=== PATIENT | male | born 1945 | race Hispanic/Latino ===

== ENCOUNTER 2017-06-12 17:02 | Inpatient (IN) | payer MEDICARE ==
[2017-06-12 17:56] LABS: BASO % 0.5 % (0.0-2.0); EOS # 0.2 K/uL (0.0-0.7); EOS % 2.2 % (0.0-4.0); LYMPH # 3.9 K/uL (1.0-4.3); LYMPH % 41.1 % (20.0-40.0); MEAN CELL VOLUME 92.1 fL (80.0-94.0); MEAN CORPUSCULAR HEMOGLOBIN 31.5 pg (27.0-31.0); MEAN CORPUSCULAR HGB CONC 34.2 g/dL (33.0-37.0); MEAN PLATELET VOLUME 9.6 fL (7.2-11.7); MONO # 0.7 K/uL (0.0-0.8); MONO % 7.5 % (0.0-10.0); NEUT # 4.7 K/uL (1.8-7.0); NEUT % 48.7 % (50.0-75.0); NRBC % 0.1 % (0.0-2.0); RBC 4.12 Mil/uL (4.40-5.90); RED CELL DISTRIBUTION WIDTH 13.4 % (11.5-14.5); WHITE BLOOD COUNT 9.6 K/uL (4.8-10.8)
--- NOTE | 2017-06-12 18:02 | RAD ---
HISTORY: Syncope COMPARISON: None available. TECHNIQUE: Chest, one view. FINDINGS: Examination limited by habitus and patient obliquity. LUNGS: No focal consolidation. Please note that chest x-ray has limited sensitivity for the detection of pulmonary masses. PLEURA: No significant pleural effusion identified. No definite pneumothorax . CARDIOVASCULAR: Mild cardiomegaly. OSSEOUS STRUCTURES: Degenerative changes of the spine and shoulders. VISUALIZED UPPER ABDOMEN: Lucency beneath the left hemidiaphragm consistent with gaseous distention of stomach. OTHER FINDINGS: None. IMPRESSION: Mild cardiomegaly.
[2017-06-12 18:07] LABS: PROTHROMBIN TIME 11.6 SECONDS (9.7-12.2)
[2017-06-12 18:10] LABS: ALB/GLOB RATIO 1.5 (1.0-2.1); ALBUMIN 4.1 g/dL (3.5-5.0); ALT/SGPT 263 U/L (21-72); AST/SGOT 200 U/L (17-59); BLOOD UREA NITROGEN 25 mg/dL (9-20); CALCIUM 8.4 mg/dl (8.6-10.4); GFR AFRICAN-AMERICAN > 60; GFR NON-AFRICAN AMERICAN 50; MAGNESIUM 1.6 mg/dL (1.6-2.3)
[2017-06-12 18:27] LABS: B-TYPE NATRIURETIC PEPTIDE 891 pg/mL (0-900)
[2017-06-12] MEDS ORDERED: Lactated Ringer's 1,000 ML IVB STA (18:29)
[2017-06-12] MEDS ORDERED: Lactated Ringer's 1,000 ML ONE (18:42)
[2017-06-12] MEDS ORDERED: Heparin25000 units/250ml 1/2NS 25,000 UNITS/250 ML BAG IV ONE ×2 (19:06→19:15)
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
[2017-06-12] MEDS ORDERED: Iodixanol 320 MG/ML 100 ML BOTTLE IV ONE (20:45)
--- NOTE | 2017-06-12 22:37 | CT ---
EXAM: CT Angiography Chest With Intravenous Contrast EXAM DATE/TIME: 06/12/2017 7:53 PM CLINICAL HISTORY: 71 years old, male; Signs and symptoms and condition or disease; Lung condition and disease; Pulmonary embolism; Dyspnea; Additional info: Syncope. Chest pain. R/O pe TECHNIQUE: Axial computed tomographic angiography images of the chest with intravenous contrast using pulmonary embolism protocol. All CT scans at this facility use one or more dose reduction techniques, viz.: automated exposure control; ma/kV adjustment per patient size (including targeted exams where dose is matched to indication; i.e. head); or iterative reconstruction technique. MIP reconstructed images were created and reviewed. Coronal and sagittal reformatted images were created and reviewed. CONTRAST: 100 mL of visipaque 320 administered intravenously. COMPARISON: There are no prior studies for comparison. FINDINGS: Artifacts: Motion artifact degrades image quality. Heart, Aorta and Pulmonary arteries: The heart is mildly enlargedThere is trace fluid in pericardial recesses. There are coronary artery calcifications.There is no aneurysm or dissection. There are scattered calcifications in the aortic wall. There is perfusion of the 3 arch vessels.There are no pulmonary emboli. Lungs and pleural spaces: Trachea and main bronchi are patent. There is no pneumothorax. There is dependent atelectasis greatest at the lung bases. There is minimal atelectasis/scarring in the middle lobe and lingula. There is no lobar or segmental consolidation. There are no effusions. Mediastinum: There is fatty infiltration of the mediastinum. The esophagus is partially distended with air. There are shotty mediastinal nodes. There are no pathologically enlarged mediastinal or hilar nodes. Thyroid: Thyroid is not optimally demonstrated. Bones/joints: There is a minimally displaced fracture of the anterior left fifth rib. There is minimal overlying bruising. There are degenerative changes in the osseus structures. Soft tissues: unremarkable Lymph nodes: See above. Upper abdomen: There are no acute abnormalities in the visualized portion of the abdomen.There is fatty infiltration of the liver. IMPRESSION: Mild cardiomegaly, no aneurysm, dissection or pulmonary embolus; fracture inferior left fifth rib Additional findings as described above. An acute nondisplaced rib fracture may be radiographically occult
--- NOTE | 2017-06-12 22:45 | CP.PCM.CON ---
History of Present Illness - History of Present Illness History of Present Illness: 71yo M. PMHx Anxiety, Asthma, Depression, Mitral Valve Prolapse. patient had a syncopal episode today. Patient had CPR performed by bystander, possibly unnecessarily. Arrived via EMS, alert and oriented. Patient has palpable chest pain that spans his entire chest that is reproducible with palpation, also possible from chest compressions. Patient had a nuclear stress test this year, that didn't show any abnormalities. He has been told he has an arrhythmia , for which he has had a holter monitor several times, with no positive results. 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 Review of Systems - Review of Systems All systems: reviewed and no additional remarkable complaints except - Cardiovascular Cardiovascular: Chest Pain (reproducible, feels muscular in nature) Past Patient History - Past Social History Smoking Status: Never Smoked - CARDIAC Hx Mitral Valve Prolapse: Yes - PULMONARY Hx Asthma: Yes - PSYCHIATRIC Hx Anxiety: Yes Hx Depression: Yes Hx Substance Use: No - SURGICAL HISTORY Hx Tonsillectomy: Yes - ANESTHESIA Hx Anesthesia: Yes Hx Anesthesia Reactions: No Meds Allergies/Adverse Reactions: Allergies Allergy/AdvReac Type Severity Reaction Status Date / Time No Known Allergies Allergy Verified 06/12/17 17:09 - Medications Medications: Current Medications Heparin Sodium/Sodium Chloride (Heparin 42633 Units/250ml 1/2 Normal Saline) 25 ,000 units in 250 mls @ 12.519 mls/hr IV .[id number] ONE; 12 U/KG/HR PRN Reason: Protocol Stop: 06/13/17 15:13 Last Admin: 06/12/17 19:53 Dose: 12.519 mls/hr Physical Exam - Head Exam Head Exam: ATRAUMATIC, NORMAL INSPECTION, NORMOCEPHALIC - Eye Exam Eye Exam: EOMI, Normal appearance, PERRL - ENT Exam ENT Exam: Mucous Membranes Moist, Normal Exam - Respiratory Exam Respiratory Exam: Clear to Auscultation Bilateral, NORMAL BREATHING PATTERN - Cardiovascular Exam Cardiovascular Exam: REGULAR RHYTHM - GI/Abdominal Exam GI & Abdominal Exam: Normal Bowel Sounds, Soft. absent: Tenderness - Neurological Exam Neurological exam: Alert, CN II-XII Intact, Oriented x3, Reflexes Normal - Psychiatric Exam Psychiatric exam: Normal Affect, Normal Mood Results - Vital Signs Recent Vital Signs: Last Vital Signs Temp Pulse 79 06/12/17 21:59 Resp 14 06/12/17 21:59 BP 131/51 L 06/12/17 21:59 Pulse Ox 97 06/12/17 21:59 - Labs Result Diagrams: 06/12/17 17:51 06/12/17 17:51 Labs: Laboratory Results - last 24 hr 06/12/17 06/12/17 06/12/17 17:13 17:51 17:51 WBC 9.6 RBC 4.12 L Hgb 13.0 Hct 38.0 MCV 92.1 MCH 31.5 H MCHC 34.2 RDW 13.4 Plt Count 235 MPV 9.6 Neut % (Auto) 48.7 L Lymph % (Auto) 41.1 H [place] % (Auto) 7.5 Eos % (Auto) 2.2 Baso % (Auto) 0.5 Neut # 4.7 Lymph # 3.9 [place] # 0.7 Eos # 0.2 Baso # 0.0 PT 11.6 INR 1.0 APTT 26 Sodium Potassium Chloride Carbon Dioxide Anion Gap BUN Creatinine Est GFR ( Amer) Est GFR (Non-Af Amer) POC Glucose (mg/dL) 116 H Random Glucose Calcium Magnesium Total Bilirubin AST ALT Alkaline Phosphatase Total Creatine Kinase CK-MB (Mass) Troponin I NT-Pro-B Natriuret Pep Total Protein Albumin Globulin Albumin/Globulin Ratio 06/12/17 06/12/17 17:51 21:10 WBC RBC Hgb Hct MCV MCH MCHC RDW Plt Count MPV Neut % (Auto) Lymph % (Auto) [place] % (Auto) Eos % (Auto) Baso % (Auto) Neut # Lymph # [place] # Eos # Baso # PT INR APTT Sodium 136 Potassium 4.0 Chloride 102 Carbon Dioxide 18 L Anion Gap 20 BUN 25 H Creatinine 1.4 Est GFR ( Amer) > 60 Est GFR (Non-Af Amer) 50 POC Glucose (mg/dL) Random Glucose 127 H Calcium 8.4 L Magnesium 1.6 Total Bilirubin 0.4 AST 200 H ALT 263 H Alkaline Phosphatase 60 Total Creatine Kinase 134 CK-MB (Mass) 2.40 Troponin I 0.1530 H* 0.3580 H* NT-Pro-B Natriuret Pep 891 Total Protein 7.0 Albumin 4.1 Globulin 2.8 Albumin/Globulin Ratio 1.5 Assessment & Plan (1) Arrhythmia Assessment and Plan: 71yo M. PMHx Anxiety, Asthma, Depression, Mitral Valve Prolapse. p/w syncopal episode possibly from arrythmia. Neuro: alert and oriented x 3 Pulm: no acute issues, breathing spontaneously on nasal canula, can remove nasal canula. CV: hemodynamically stable, normotensive. Relatively hypotensive for a normally hypertensive patient, but asymptomatic. obtain echo. Trend Troponins , mildly positive. Consider NSTEMI vs strain pattern. recent nuclear stress test negative as per patient. Cardiology consulted. Patient's story and history more consistent with arrythmia, would consider prolonged Holter monitor , greater than 24h. Hem: continue heparin gtt for possible NSTEMI. Renal: no acute issues, urine output wnl, will monitor Endo: no acute issues GI: cardiac diet ID: no acute issues DVT proph - heparin gtt GI proph - protonix Code status - full code Patient is clinically stable for continued management on Telemetry. If clinical status changes, please reconsult ICU. Critical Care Time spent 35 minutes Multi-disciplinary rounds were performed with house staff, nursing, speech therapy, respiratory therapy, pharmacy and nutrition with integrated input from the primary team/attending and other consulting services. The documented time is cumulative and includes review of patient data/exams/labs/chart review and examination of the patient on rounds and throughout the day; time is exclusive of any procedures or teaching time. Status: Acute
[2017-06-12] MEDS ORDERED: Oxycodone/Acetaminophen 5/325 mg Tab PO STA (22:46)
[2017-06-12] MEDS ORDERED: Oxycodone/Acetaminophen 5/325 mg Tab ONE (23:10)
[2017-06-13] MEDS: Lactated Ringer's 1,000 ML IV SCH ×2 (00:23→17:16)
[2017-06-13] MEDS ORDERED: Lactated Ringer's 1,000 ML ONE (00:24)
[2017-06-13 03:30] LABS: URINE BACTERIA RARE (<OCC); URINE BILIRUBIN NEGATIVE (NEGATIVE); URINE BLOOD NEGATIVE (NEGATIVE); URINE CLARITY Clear (Clear); URINE COLOR Yellow (YELLOW); URINE GLUCOSE (UA) NORMAL (Normal); URINE LEUKOCYTE ESTERASE NEG Leu/uL (Negative); URINE NITRATE NEGATIVE (NEGATIVE); URINE PROTEIN NEGATIVE (NEGATIVE); URINE UROBILINOGEN NORMAL mg/dL (0.2-1.0)
[2017-06-13 03:46] LABS: BARBITURATES, UR NEGATIVE (NEGATIVE); BENZODIAZEPINES, UR NEGATIVE (NEGATIVE); OPIATES, UR NEGATIVE (NEGATIVE); PHENCYCLIDINE, UR NEGATIVE (NEGATIVE)
[2017-06-13 05:25] LABS: BASO # 0.1 K/uL (0.0-0.2); BASO % 0.6 % (0.0-2.0); EOS # 0.2 K/uL (0.0-0.7); EOS % 2.1 % (0.0-4.0); HEMOGLOBIN 12.3 g/dL (12.0-18.0); LYMPH # 3.5 K/uL (1.0-4.3); LYMPH % 31.8 % (20.0-40.0); MEAN CELL VOLUME 91.7 fL (80.0-94.0); MEAN CORPUSCULAR HEMOGLOBIN 31.5 pg (27.0-31.0); MEAN CORPUSCULAR HGB CONC 34.4 g/dL (33.0-37.0); MEAN PLATELET VOLUME 9.1 fL (7.2-11.7); MONO # 0.7 K/uL (0.0-0.8); MONO % 6.7 % (0.0-10.0); NEUT # 6.4 K/uL (1.8-7.0); NEUT % 58.8 % (50.0-75.0); NRBC % 0.1 % (0.0-2.0); RBC 3.91 Mil/uL (4.40-5.90); RED CELL DISTRIBUTION WIDTH 13.1 % (11.5-14.5); WHITE BLOOD COUNT 10.9 K/uL (4.8-10.8)
[2017-06-13 05:46] LABS: ALB/GLOB RATIO 1.4 (1.0-2.1); ALBUMIN 3.8 g/dL (3.5-5.0); ALT/SGPT 211 U/L (21-72); AST/SGOT 101 U/L (17-59); BLOOD UREA NITROGEN 24 mg/dL (9-20); CALCIUM 8.2 mg/dl (8.6-10.4); GFR AFRICAN-AMERICAN > 60; GFR NON-AFRICAN AMERICAN 50; HDL CHOLESTEROL 30 mg/dL (30-70)
[2017-06-13 05:49] LABS: LDL CHOLESTEROL 117 mg/dL (0-129)
[2017-06-13 05:53] LABS: CK-MB 8.36 ng/mL (0.0-3.38); TROPONIN I 0.327 ng/mL (0.00-0.120)
[2017-06-13] MEDS: (Novolog) Insulin Aspart, Recombinant 100 u/ml 10 ml vial SC SCH ×4 (08:33→21:52)
--- NOTE | 2017-06-13 09:18 | CT ---
PROCEDURE: CT HEAD WITHOUT CONTRAST. HISTORY: Syncopal episode COMPARISON: None available. TECHNIQUE: Axial computed tomography images were obtained through the head/brain without intravenous contrast. Radiation dose: Total exam DLP = annual 4.61 mGy-cm. This CT exam was performed using one or more of the following dose reduction techniques: Automated exposure control, adjustment of the mA and/or kV according to patient size, and/or use of iterative reconstruction technique. FINDINGS: HEMORRHAGE: No acute parenchymal, subarachnoid or extra-axial hemorrhage. Hemorrhage. BRAIN: Suspect minimal chronic periventricular white matter ischemic changes. No obvious parenchymal nor extra-axial mass or collection seen on this noncontrast study. Mild generalized volume loss. VENTRICLES: No obstructive hydrocephalus. CALVARIUM: Unremarkable. PARANASAL SINUSES: Unremarkable as visualized. No significant inflammatory changes. MASTOID AIR CELLS: Unremarkable as visualized. No inflammatory changes. OTHER FINDINGS: None. IMPRESSION: No acute intracranial hemorrhage. Suspect minimal chronic periventricular white matter ischemic changes. Mild generalized volume loss.
[2017-06-13] MEDS ORDERED: OMEGA PO SCH (10:00)
[2017-06-13] MEDS ORDERED: FISH OIL PO SCH (10:00)
[2017-06-13] MEDS ORDERED: EPA PO SCH (10:00)
[2017-06-13] MEDS ORDERED: DHA PO SCH (10:00)
[2017-06-13] MEDS: Multiple Vitamins Tab PO SCH (10:37)
--- NOTE | 2017-06-13 11:07 | CP.PCM.PN ---
Subjective - Date & Time of Evaluation Date of Evaluation: 06/13/17 - Subjective Subjective: H&P [facility] #[id number] Objective - Vital Signs/Intake and Output Vital Signs (last 24 hours): Temp Pulse Resp BP Pulse Ox 98.4 F 79 16 137/73 98 06/13/17 10:24 06/13/17 10:24 06/13/17 10:24 06/13/17 10:24 06/13/17 10:24 - Medications Medications: Current Medications Acetaminophen (Tylenol 325mg Tab) 650 mg PO Q6 PRN PRN Reason: pain Last Admin: 06/13/17 02:23 Dose: 650 mg Aspirin (Ecotrin) 81 mg PO DAILY [facility] Last Admin: 06/13/17 10:37 Dose: 81 mg Home Med (Rescue-3s/Dha/Epa/Fish Oil [Fish Oil Rescue-3 Softgel]) 1 each PO DAILY [facility] Heparin Sodium/Sodium Chloride (Heparin 30926 Units/250ml 1/2 Normal Saline) 25 ,000 units in 250 mls @ 12.519 mls/hr IV .[id number] ONE; 12 U/KG/HR PRN Reason: Protocol Stop: 06/13/17 15:13 Last Admin: 06/12/17 19:53 Dose: 12.519 mls/hr Lactated Ringer's (Lactated Ringer's) 1,000 mls @ 60 mls/hr IV .[id number] [facility] Last Admin: 06/13/17 00:23 Dose: 60 mls/hr Insulin Aspart (Novolog) 0 unit SC ACHS MORGAN PRN Reason: Protocol Last Admin: 06/13/17 08:33 Dose: Not Given Multivitamins (Hexavitamin) 1 tab PO DAILY [facility] Last Admin: 06/13/17 10:37 Dose: 1 tab Rosuvastatin Calcium (Crestor) 20 mg PO HS [facility] - Labs Labs: 06/13/17 05:22 06/13/17 05:22 PT 11.6 SECONDS (9.7-12.2) 06/12/17 17:51 INR 1.0 06/12/17 17:51 APTT 62 SECONDS (21-34) H 06/13/17 08:41
[2017-06-13] MEDS: Omega-3-Acid Ethyl Esters 1 GM Cap PO SCH (11:30)
--- NOTE | 2017-06-13 12:06 | CARD ---
APPROVED REPORT EXAM: Two-dimensional and M-mode echocardiogram with Doppler and color Doppler. Other Information Quality : GoodRhythm : INDICATION Chest Pain Syncope Non STEMI POSITIVE TROPONIN 2D DIMENSIONS IVSd1.4 (0.7-1.1cm)LVDd5.4 (3.9-5.9cm) LVOT Diameter2.7 (1.8-2.4cm)PWd0.9 (0.7-1.1cm) LVDs4.8 (2.5-4.0cm)FS (%) 12.6 % M-Mode DIMENSIONS RVDd1.94 (2.1-3.2cm)Left Atrium (MM)4.18 (2.5-4.0cm) IVSd1.85 (0.7-1.1cm)Aortic Root3.88 (2.2-3.7cm) LVDd4.62 (4.0-5.6cm)Aortic Cusp Exc.1.05 (1.5-2.0cm) PWd1.52 (0.7-1.1cm)FS (%) 41 % LVDs2.72 (2.0-3.8cm)LVEF (%)72 (>50%) Aortic Valve AoV Peak Lnozqqcu087.6cm/sAoV NLS795.1cmAO Peak GR.89mmHg LVOT Peak Riuthnyk07.2cm/sLVOT VTI17.87cmAO Mean GR.50mmHg ABHAY (VMAX)0.83qi1BFV (VTI)0.86cm2 Mitral Valve MV E Drzgroec95.2cm/sMV A Agxmljiw21.6cm/sE/A ratio1.2 TDI E/Lateral E'0.0E/Medial E'0.0 Tricuspid Valve TR Peak Wpknhvoe686cg/sTR Peak Gr.48yhPpNPFT24vuJn LEFT VENTRICLE The left ventricle is normal size. There is moderate concentric left ventricular hypertrophy. The left ventricular function is normal. The left ventricular ejection fraction is within the normal range. There is normal LV segmental wall motion. Transmitral Doppler flow pattern is Grade I-abnormal relaxation pattern. RIGHT VENTRICLE The right ventricle is normal size. There is normal right ventricular wall thickness. The right ventricular systolic function is normal. ATRIA The left atrium is mildly dilated. The right atrium size is normal. AORTIC VALVE The aortic valve is moderately calcified. There is trace aortic regurgitation. There is moderate to severe valvular aortic stenosis. MITRAL VALVE The mitral valve is moderately thickened. Mitral regurgitation is moderate to severe. TRICUSPID VALVE There is moderate tricuspid regurgitation. There is moderate pulmonary hypertension. GREAT VESSELS The aortic root is normal in size. The IVC collapses <50% with inspiration. PERICARDIAL EFFUSION There is no pericardial effusion. <Conclusion> The left ventricle is normal size. There is moderate concentric left ventricular hypertrophy. The left ventricular function is normal. The left ventricular ejection fraction is within the normal range. There is normal LV segmental wall motion. Transmitral Doppler flow pattern is Grade I-abnormal relaxation pattern. The aortic valve is moderately calcified. There is moderate to severe valvular aortic stenosis. Mitral regurgitation is moderate to severe. There is moderate tricuspid regurgitation. There is moderate pulmonary hypertension.
--- NOTE | 2017-06-13 12:45 | VASCLAB ---
PROCEDURE: HISTORY: Syncopal episode, NSTEMI COMPARISON: None available. TECHNIQUE: Grayscale and duplex Doppler evaluation of the cervical carotid and vertebral arteries were performed. The common carotid, carotid bifurcations and cervical Internal Carotid Artery (ICA) and proximal External Carotid Artery (ECA) were evaluated. The vertebral arteries were evaluated for gross patency and flow direction. Report prepared by CA Ortega FINDINGS: RIGHT CAROTID ARTERIES: 1. Common Carotid Artery: No significant focal plaque formation of the right common carotid artery. Maximum Peak Systolic velocity: 96 cm/sec: End-diastolic velocity 24 cm/sec. 2. Carotid Bifurcation: plaque formation. Maximum Peak Systolic velocity: 59 cm/sec: End-diastolic velocity 18 cm/sec. 3. Internal Carotid Artery: Plaque description: Homogeneous 3.1. Proximal Segment: Peak systolic velocity 84 cm/sec: End-diastolic velocity 28 cm/sec - % stenosis 0-15% 3.2. Middle Segment: Peak systolic velocity 83 cm/sec: End-diastolic velocity 29 cm/sec - % stenosis 0-15% 3.3. Distal Segment: Peak systolic velocity 94 cm/sec: End-diastolic velocity 34 cm/sec - % stenosis 0-15% 4. External Carotid Artery: No significant focal plaque formation. Peak systolic velocity 217 cm/sec 5. ICA/CCA Ratio: 1.8 LEFT CAROTID ARTERIES: 1. Common Carotid Artery: No significant focal plaque formation of the left common carotid artery. Maximum Peak Systolic velocity: 77 cm/sec: End-diastolic velocity 20 cm/sec. 2. Carotid Bifurcation: plaque formation. Maximum Peak Systolic velocity: 42 cm/sec: End-diastolic velocity 10 cm/sec. 3. Internal Carotid Artery: Plaque description: Homogeneous 3.1. Proximal Segment: Peak systolic velocity 69 cm/sec: End-diastolic velocity 27 cm/sec - % stenosis 0-15% 3.2. Middle Segment: Peak systolic velocity 80 cm/sec: End-diastolic velocity 29 cm/sec - % stenosis 0-15% 3.3. Distal Segment: Peak systolic velocity 73 cm/sec: End-diastolic velocity 24 cm/sec - % stenosis 0-15% 4. External Carotid Artery: No significant focal plaque formation. Peak systolic velocity 93 cm/sec 5. ICA/CCA Ratio: 1.6 VERTEBRAL ARTERIES: 1. Right Vertebral Artery: The right vertebral artery flow direction is antegrade. 2. Left Vertebral Artery: The left vertebral artery flow direction is antegrade. OTHER FINDINGS: 1. Right Brachial Blood pressure: 150 mmHg. 2. Left Brachial Blood pressure: 145 mmHg. IMPRESSION: RIGHT: Duplex scan does not suggest hemodynamically significant stenosis of the right internal carotid artery. Slightly increased velocity noted at the proximal ECA. LEFT: Duplex scan does not suggest hemodynamically significant stenosis of the left extracranial carotid arteries.
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
[2017-06-13] MEDS ORDERED: Omega-3-Acid Ethyl Esters 1 GM Cap PO ONE (14:06)
--- NOTE | 2017-06-13 14:47 | CARD ---
APPROVED REPORT EKG Measurement Heart [id number] <Conclusion> Normal sinus rhythm Left ventricular hypertrophy with repolarization abnormality Anterolateral infarct, age undetermined Consider lateral ischemia Abnormal ECG
--- NOTE | 2017-06-13 14:49 | CARD ---
APPROVED REPORT EKG Measurement Heart [id number] [place] 134P1 [id number] <Conclusion> Normal sinus rhythm Left ventricular hypertrophy with repolarization abnormality Cannot rule out Inferior infarct, age undetermined Consider lateral ischemia Abnormal ECG
--- NOTE | 2017-06-13 14:49 | CARD ---
APPROVED REPORT EKG Measurement Heart [id number] [place] [id number] <Conclusion> Normal sinus rhythm Left ventricular hypertrophy with repolarization abnormality Abnormal ECG
[2017-06-13 15:35] LABS: CK-MB 6.82 ng/mL (0.0-3.38); TROPONIN I 0.151 ng/mL (0.00-0.120)
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
--- NOTE | 2017-06-14 07:31 | CP.PCM.CON ---
History of Present Illness - History of Present Illness History of Present Illness: CONSULT DICTATED REC SYNCOPE VASOVAGAL / SEIZURES/VBI OR HYPOPERFUSION / ??? HI Hx DROP ATTACK SLEEP RELATED BREATHING DISORDER /INSOMNIA /DAYTIME SLEEPINESS/ ? DROP ATTACK x2 NARCOLEPSY WITH CATAPLEXY POLY PHARMACY CAROTID/EEG/MRI NEEDS PSG WITH MSLT OP DRIVING ON HOLD UNTIL HIS PROBLEM IS STUDIED AND TREATED Past Patient History - Past Social History Smoking Status: Never Smoked - CARDIAC Hx Hypertension: Yes Hx Mitral Valve Prolapse: Yes - PULMONARY Hx Asthma: Yes - NEUROLOGICAL Other/Comment: DX. Syncope - HEENT Hx HEENT Problems: No - RENAL Hx Chronic Kidney Disease: No - ENDOCRINE/METABOLIC Hx Endocrine Disorders: No - HEMATOLOGICAL/ONCOLOGICAL Hx Blood Disorders: No - INTEGUMENTARY Hx Dermatological Problems: No - MUSCULOSKELETAL/RHEUMATOLOGICAL Hx Falls: No - GASTROINTESTINAL Hx Gastrointestinal Disorders: No - GENITOURINARY/GYNECOLOGICAL Hx Genitourinary Disorders: No - PSYCHIATRIC Hx Anxiety: Yes Hx Depression: Yes Hx Substance Use: No - SURGICAL HISTORY Hx Tonsillectomy: Yes - ANESTHESIA Hx Anesthesia: Yes Hx Anesthesia Reactions: No Hx Malignant Hyperthermia: No Has any member of the family had a problem w/ anesthesia?: No Meds Allergies/Adverse Reactions: Allergies Allergy/AdvReac Type Severity Reaction Status Date / Time No Known Allergies Allergy Verified 06/12/17 17:09 - Medications Medications: Current Medications Acetaminophen (Tylenol 325mg Tab) 650 mg PO Q6 PRN PRN Reason: pain Last Admin: 06/14/17 00:37 Dose: 650 mg Aspirin (Ecotrin) 81 mg PO DAILY [facility] Last Admin: 06/13/17 10:37 Dose: 81 mg Lactated Ringer's (Lactated Ringer's) 1,000 mls @ 60 mls/hr IV .[id number] [facility] Last Admin: 06/13/17 17:16 Dose: 60 mls/hr Insulin Aspart (Novolog) 0 unit SC ACHS [facility] PRN Reason: Protocol Last Admin: 06/13/17 21:52 Dose: Not Given Loratadine (Claritin) 10 mg PO ONCE [facility] Stop: 06/14/17 13:45 Multivitamins (Hexavitamin) 1 tab PO DAILY [facility] Last Admin: 06/13/17 10:37 Dose: 1 tab Tjlue-5-Kkae Ethyl Esters (Lovaza) 1 gm PO DAILY [facility] Last Admin: 06/13/17 11:30 Dose: Not Given Rosuvastatin Calcium (Crestor) 20 mg PO HS [facility] Last Admin: 06/13/17 21:11 Dose: 20 mg Results - Vital Signs Recent Vital Signs: Last Vital Signs Temp 98 F 06/14/17 04:00 Pulse 75 06/14/17 04:07 Resp 20 06/14/17 04:00 BP 164/92 H 06/14/17 04:00 Pulse Ox 97 06/14/17 04:00 - Labs Result Diagrams: 06/13/17 05:22 06/13/17 05:22 Labs: Laboratory Results - last 24 hr 06/13/17 06/13/17 06/13/17 08:28 08:41 14:27 APTT 62 H POC Glucose (mg/dL) 84 Total Creatine Kinase 307 H CK-MB (Mass) 6.82 H Troponin I 0.1510 H* 06/13/17 06/13/17 06/14/17 17:20 21:39 06:20 APTT POC Glucose (mg/dL) 115 H 115 H 94 Total Creatine Kinase CK-MB (Mass) Troponin I
[2017-06-14] MEDS: (Novolog) Insulin Aspart, Recombinant 100 u/ml 10 ml vial SC SCH ×4 (07:33→21:49)
[2017-06-14] MEDS: Lactated Ringer's 1,000 ML IV SCH (07:44)
[2017-06-14] MEDS: Multiple Vitamins Tab PO SCH (10:48)
[2017-06-14] MEDS: Omega-3-Acid Ethyl Esters 1 GM Cap PO SCH (10:48)
--- NOTE | 2017-06-14 11:30 | CP.PCM.PN ---
Subjective - Date & Time of Evaluation Date of Evaluation: 06/14/17 Time of Evaluation: 11:25 - Subjective Subjective: Progress note dictated #[id number] Objective - Vital Signs/Intake and Output Vital Signs (last 24 hours): Temp Pulse Resp BP Pulse Ox 98.2 F 76 18 145/72 98 06/14/17 08:01 06/14/17 08:01 06/14/17 08:01 06/14/17 08:01 06/14/17 08:01 Intake and Output: 06/14/17 06/14/17 06:59 18:59 Intake Total 1440 Output Total 325 Balance 1115 - Medications Medications: Current Medications Acetaminophen (Tylenol 325mg Tab) 650 mg PO Q6 PRN PRN Reason: pain Last Admin: 06/14/17 00:37 Dose: 650 mg Aspirin (Ecotrin) 81 mg PO DAILY [facility] Last Admin: 06/14/17 10:48 Dose: 81 mg Lactated Ringer's (Lactated Ringer's) 1,000 mls @ 60 mls/hr IV .[id number] [facility] Last Admin: 06/14/17 07:44 Dose: 60 mls/hr Insulin Aspart (Novolog) 0 unit SC ACHS [facility] PRN Reason: Protocol Last Admin: 06/14/17 07:33 Dose: Not Given Loratadine (Claritin) 10 mg PO ONCE [facility] Stop: 06/14/17 13:45 Multivitamins (Hexavitamin) 1 tab PO DAILY [facility] Last Admin: 06/14/17 10:48 Dose: 1 tab Figir-5-Jzzd Ethyl Esters (Lovaza) 1 gm PO DAILY [facility] Last Admin: 06/14/17 10:48 Dose: 1 gm Rosuvastatin Calcium (Crestor) 20 mg PO HS [facility] Last Admin: 06/13/17 21:11 Dose: 20 mg - Labs Labs: 06/13/17 05:22 06/13/17 05:22 PT 11.6 SECONDS (9.7-12.2) 06/12/17 17:51 INR 1.0 06/12/17 17:51 APTT 62 SECONDS (21-34) H 06/13/17 08:41
[2017-06-14 16:16] VITALS: BP 166/83; RESP 20; TEMP 97.4; O2SAT 96
[2017-06-14 16:29] VITALS: PULSE 77
--- NOTE | 2017-06-14 17:16 | MRI ---
PROCEDURE: MRI BRAIN WITHOUT CONTRAST HISTORY: stroke Vs mass COMPARISON: Unenhanced head CT 06/12/2017. TECHNIQUE: Multiplanar, multisequence MR images of the brain were obtained without intravenous contrast enhancement. FINDINGS: HEMORRHAGE: None DWI: No evidence of an acute or early subacute infarction. BRAIN PARENCHYMA: Limited diffuse cerebral atrophy and chronic microangiopathy are reiterated. No mass is identified or suspicious extra-axial fluid collection in the midline brain and appears diffusely unremarkable nevertheless. Posterior fossa contents remain unremarkable including the brainstem. VENTRICLES: Unremarkable. No hydrocephalus. CRANIUM: Unremarkable. ORBITS: Grossly unremarkable. PARANASAL SINUSES/MASTOIDS: Trace mastoid effusions are identified. VASCULAR SYSTEM: Skull base flow voids intact. OTHER FINDINGS: None. IMPRESSION: Stable limited age-related neuro degenerative changes are reiterated as compared to prior head CT 06/12/2017. No acute intracranial findings are identified including brain infarction and hemorrhage.
--- NOTE | 2017-06-14 20:41 | CP.PCM.PN ---
Subjective - Date & Time of Evaluation Date of Evaluation: 06/14/17 Time of Evaluation: 20:40 - Subjective Subjective: Events reviewed no recurrence of symptoms Telemetry benign Examination vitals reviewed normal venous pressures murmur without change no edema Objective - Vital Signs/Intake and Output Vital Signs (last 24 hours): Temp Pulse Resp BP Pulse Ox 97.4 F L 77 20 166/83 H 96 06/14/17 15:00 06/14/17 16:22 06/14/17 15:00 06/14/17 20:06 06/14/17 15:00 Intake and Output: 06/14/17 06/15/17 18:59 06:59 Intake Total 300 Balance 300 - Medications Medications: Current Medications Acetaminophen (Tylenol 325mg Tab) 650 mg PO Q6 PRN PRN Reason: pain Last Admin: 06/14/17 00:37 Dose: 650 mg Aspirin (Ecotrin) 81 mg PO DAILY [facility] Last Admin: 06/14/17 10:48 Dose: 81 mg Carvedilol (Coreg) 12.5 mg PO BID [facility] Last Admin: 06/14/17 20:06 Dose: 12.5 mg Lactated Ringer's (Lactated Ringer's) 1,000 mls @ 60 mls/hr IV .[id number] [facility] Last Admin: 06/14/17 07:44 Dose: 60 mls/hr Insulin Aspart (Novolog) 0 unit SC ACHS [facility] PRN Reason: Protocol Last Admin: 06/14/17 17:14 Dose: Not Given Mirtazapine (Remeron) 15 mg PO HS [facility] Multivitamins (Hexavitamin) 1 tab PO DAILY [facility] Last Admin: 06/14/17 10:48 Dose: 1 tab [id number] Ethyl Esters (Lovaza) 1 gm PO DAILY [facility] Last Admin: 06/14/17 10:48 Dose: 1 gm Rosuvastatin Calcium (Crestor) 20 mg PO HS [facility] Last Admin: 06/13/17 21:11 Dose: 20 mg Venlafaxine HCl (Effexor) 75 mg PO BID [facility] - Labs Labs: 06/13/17 05:22 06/13/17 05:22 PT 11.6 SECONDS (9.7-12.2) 06/12/17 17:51 INR 1.0 06/12/17 17:51 APTT 62 SECONDS (21-34) H 06/13/17 08:41 Assessment and Plan - Assessment and Plan (Free Text) Assessment: Mr. Arce presented with an episode of transient loss of consciousness and dizziness previously associated with effort Examination is consistent with valvular significant aortic stenosis. The index syncope is of unclear mechanism, likely hemodynamically mediated (cf. seizures or hypoglycemia) but is tangentially related to aortic valve disease; the dizziness preceding the event is due to valve disease, however the index syncope while driving warrants a second mechanism likely an arrhythmia (?damon gautam attack versus a tachyarrhythmia); the troponin spillage although small suggests a demand infarct and predicts underlying severe coronary artery disease No interval change Discussed with patient and his PMD DR. Valdez, they requested him to be discharged or transferred to [facility]; the latter is more prudent given the unclear mechanism of syncope with a distinct possibility of ventricular arrhythmia and its recurrence; alternatively an external defibrillator could be applied and then discharged Plan: as outlined
--- NOTE | 2017-06-14 22:05 | PN ---
DATE: 06/14/2017 SUBJECTIVE: The patient was seen and examined at bedside. Patient is comfortable, lying in bed. Denies any headache or dizziness. Complaining of chest wall pain. Denies any nausea, vomiting, abdominal pain, diarrhea or constipation. Denies any shortness of breath. Denies any neurologic symptoms. All other systems reviewed and were found to be negative. PHYSICAL EXAMINATION: GENERAL: Elderly male, lying in bed, in no acute distress. VITAL SIGNS: Blood pressure 145/72, pulse 76, respirations 18, temperature 98.2 degrees Fahrenheit, O2 sat 98% on 2 liters nasal cannula. HEENT: Pupils are equal, round and reacting to light and accommodation. Extraocular muscles intact. No icterus. No pallor. No oral thrush. No pharyngeal congestion. NECK: Supple. No JVD. No thyromegaly. LUNGS: Bilateral vesicular breath sounds. No wheezing, no rhonchi. CARDIOVASCULAR SYSTEM: S1 and S2 present, regular. Systolic murmur heard along the left sternal border. ABDOMEN: Soft, nontender. Bowel sounds present. No guarding. No rigidity. No rebound tenderness noted. CENTRAL NERVOUS SYSTEM: Alert, awake, oriented x3. No focal deficits noted. EXTREMITIES: No edema. Palpable peripheral pulses. MEDICATIONS: Include Tylenol 325-mg tablet, 650 p.o. q.6 p.r.n., Ecotrin 81 mg daily, Ringer's lactate 60 mL an hour, multivitamins 1 tab daily, Lovaza 1 g p.o. daily, Crestor 20 mg p.o. at bedtime. LABORATORY DATA: From today, Accu-Chek 115, 94, 77, 98. MRI of the brain done today, stable, limited age-related neuro degenerative changes, reiterated and compared to prior CT head, no acute intracranial findings are identified including brain infarction or hemorrhage. ASSESSMENT AND PLAN: Elderly male with history of hypertension, hyperlipidemia, diabetes mellitus, anxiety, depression, attention deficit hyperactivity disorder, admitted for syncope, found to have slightly elevated troponin, status post cardiopulmonary resuscitation, left rib fracture, critical aortic stenosis. Cardiology evaluation appreciated, discussed with Dr. Patiño, Cardiology, who recommended cardiac catheterization and possible valve repair versus replacement. Patient is willing to have the procedures done at [facility] as his doctors are from [facility]. I talked to his grinder set up operator jig from [facility] regarding patient's current clinical condition. He accepted the patient for possible transfer. I spoke to Angeli from [facility] who will be making arrangements for possible transfer to [facility] either today or tomorrow. We will continue with his current medication and Neurology consult appreciated. Magnetic resonance imaging is negative for any acute changes. We will follow up with electroencephalogram results. Awaiting for possible transfer to [facility] either today or tomorrow. Ho Rueda MD
--- NOTE | 2017-06-15 06:48 | CON ---
DATE: 06/14/2017 NEUROLOGIC INITIAL CONSULTATION ATTENDING PHYSICIAN: Ho Rueda MD. LOCATION: Room 650, bed B. REASON FOR CONSULTATION: Syncopal attack. CHIEF COMPLAINT: The patient was brought into [facility] following a syncopal attack while he was driving slow in the parking lot. From Neurological point of view, I was called in to evaluate him for further management. HISTORY OF PRESENT ILLNESS: Mr. 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 He felt funny, some discomfortness preceding this all things happened. He folded his client's wheelchair in the trunk, put that in, and got it in the car and he started driving out of the parking, next thing he realized he was on the floor. He was surrounded by EMT and policemen. He could not recall what went through. It seems to be he passed out in the car and he was brought out of the car and no history of witnessed tonic-clonic activities, no history of bowel or bladder incontinence at the scene, no history of bitten tongue. No history of similar episodes happened in the past. However, he admits 9 years ago, 2 episodes in 3 weeks apart happened while he was at home. He could not recall, he suddenly collapsed on the floor without any witnessed or subjective evidence of injury, head trauma, loss of bowel or bladder incontinence, or bitten tongue. He admitted, he was seen by neurologist while he was in the [place]. No further workup was done as far his memory goes. PAST MEDICAL HISTORY: He had aortic valve dysfunction. He is supposed to get it replaced. He is known to be hypertensive and probably has insomnia for long period of time. PERSONAL HISTORY: Denies smoking or alcohol use. MEDICATIONS: Atorvastatin, losartan, Adderall, venlafaxine, mirtazapine, metformin, aspirin, memantine, melatonin, omega 3, and Coreg. REVIEW OF SYSTEMS: From neuro, syncopal attack. Rest of the 12-point systems have been reviewed. PHYSICAL EXAMINATION: VITAL SIGNS: Blood pressure 164/92, mean arterial pressure of 116, respiratory rate 16, temperature afebrile. NECK: Supple. No carotid bruits. HEART: Sounds regular. Systolic murmur heard over the second intracostal space on his left side. NEUROLOGICAL EXAMINATION: Mental status: Normal. He is awake, alert, oriented to person, place and time. Speech is clear. Naming, repetition, fluency, comprehension all within normal. Cranial nerves: Visual field intact. Pupils reactive to light. Extraocular movement normal. No nystagmus. No facial sensory deficit. No facial asymmetry. Hearing is normal. Tongue is midline. Good gag. Motor: Outstretched hand with eyes closed, no drift noted. Power is symmetric on either side. Deep tendon reflexes, biceps, brachialis, triceps are 1+ on either side. Both knees are absent. Postsurgical scars seen over his left knee. Both ankles are absent. Plantars are equivocal response on both sides. Sensory: Grossly intact. Coordination: [id number] test is intact. Gait is deferred at this time. DIAGNOSTIC WORKUP: CT of the head was reviewed, no acute pathologies noted. BLOOD WORKUP: WBC 10.9, hemoglobin 12.3, hematocrit 35.8, platelets 179. PT is 11.6, INR 1.0, PTT 62. Sodium 135, potassium 3.9, chloride 101, bicarbonate 29, BUN 24, creatinine 1.4, calcium 8.2, troponin 0.3270. Triglycerides 306, cholesterol 169, HDL 30. TSH 1.46. Urine tox screen shows acetaminophen positive. CONCLUSION: 1. Upon reviewing his history and neurological examination, Mr. Trent Arce has been presenting with witnessed syncopal attack while he is driving. From Neurological point of view, it could be nonconvulsive seizures or vertebrobasilar insufficiency or carotidynia. Definitely, from Neurological point of view, he needs carotid Doppler/echo/EEG and MRI of the brain to be done. 2. The patient also suffered from 2 syncopal attacks (drop attack), knowing his preceding history of insomnia and polypharmacy, could be all related to sleep related breathing disorder, may be superimposed narcolepsy; however, he is not admitting hypnagogic or hypnopompic hallucination or sleep paralysis. These 2 episodes of drop attack associating with insomnia and excessive day-time sleep, narcolepsy with cataplexy should be worked out. RECOMMENDATION: 1. MRI of the brain/carotid Doppler/echo/EEG to be done. 2. Fall precaution, seizure precaution, no antiepileptic drugs are needed at this point. 3. The patient should have polysomnogram followed with multiple sleep latency tests to be done, which can be done as outpatient. 4. Unwanted medications should be discontinued. Sleep hygiene has been discussed. The patient's weight reduction and blood pressure control have been also discussed. The patient is not a good candidate for driving until his sleep study is performed and properly treated his sleep. The patient is advised to follow up my recommendation, if he is discharged to be followed by his own neurologist and dehydration plant operator. However, he can be followed by me. My business card is given to him as well. The patient is awaiting for transfer to the [facility] to be taken care by his own dehydration plant operator. Mele Mixon MD
== END 2017-06-14 10:35 | disposition short-term general hospital (02) | DRG 312 ==
LOC: C.ER 17:02 → C.9E 23:26 → C.6T 06-13 11:04
PROVIDERS: ADMIT Internal Medicine; ATTEND Internal Medicine
DX: R55 Syncope and collapse (principal); I47.0 Re-entry ventricular arrhythmia; E11.649 Type 2 diabetes mellitus with hypoglycemia without coma; E66.9 Obesity, unspecified; E78.5 Hyperlipidemia, unspecified; G47.411 Narcolepsy with cataplexy; I10 Essential (primary) hypertension; F90.9 Attention-deficit hyperactivity disorder, unspecified type; G47.00 Insomnia, unspecified; J45.909 Unspecified asthma, uncomplicated